=== PATIENT | male | born 1970 | race Caucasian/White ===

== ENCOUNTER 2017-09-30 06:42 | Day surgery (SDC) | payer MEDICAID ==
[~2017-09-30] VITALS: Ht 177.8 cm; Wt 72.6 kg
[~2017-09-30 06:42] MED LIST: CARV3.1246 PO; CLOP75TA2 PO; GLU500 PO; LIP40 PO; LISI-209 PO; RANO500T2 PO
[2017-09-30] MEDS ORDERED: CLINDAMYCIN PHOS 600 MG/ D5W 50 ML PREMIX IV ONE (07:15)
[2017-09-30] MEDS ORDERED: OXYMETAZOLINE HCL 0.05% NASAL SPRAY NS ONE (08:15)
[2017-09-30] MEDS ORDERED: LIDOCAINE/EPI 1% 1:100000 20 ML VIAL INJ ONE (08:15)
[2017-09-30] MEDS ORDERED: ONDANSETRON HCL 4 MG/2 ML VIAL IVP ONE (08:15)
[2017-09-30] MEDS ORDERED: MIDAZOLAM HCL 5 MG/5 ML VIAL IVP ONE (08:15)
[2017-09-30] MEDS ORDERED: NS IRRIG SOLN 1000 ML IR ONE (08:15)
[2017-09-30] MEDS ORDERED: SEVOFLURANE 15 MIN GAS INH ONE (08:15)
[2017-09-30] MEDS ORDERED: DEXAMETHASONE SOD PHOSPHATE 4 MG/ML VIAL IVP ONE (08:15)
[2017-09-30] MEDS ORDERED: PROPOFOL 200MG/ 20ML VIAL (DIPRIVAN) IV ONE (08:15)
[2017-09-30] MEDS ORDERED: fentaNYL CITRATE 250 MCG/5 ML AMP IV ONE (08:15)
[2017-09-30] MEDS ORDERED: ROCURONIUM BROMIDE 10 MG/ML (ZEMURON) IV ONE (08:15)
[2017-09-30] MEDS ORDERED: LR 1,000 ML IV SCH (09:48)
[2017-09-30] MEDS ORDERED: MORPHINE 4 MG/ML INJ. SYRINGE IVP PRN ×3 (10:00)
[2017-09-30] MEDS ORDERED: ACETAMINOPHEN 500 MG TABLET PO PRN (11:45)
[2017-09-30] MEDS ORDERED: ONDANSETRON 4 MG ODT TAB PO PRN (11:45)
[2017-09-30] MEDS ORDERED: ACETAMINOPHEN/CODEINE 300 MG-30 MG TABLET PO PRN (11:45)
[2017-09-30] MEDS ORDERED: ONDANSETRON HCL 4 MG/2 ML VIAL IVP PRN (11:45)
[2017-09-30 13:39] VITALS: BP_SYST 122
== END 2017-09-30 14:20 | disposition home or self-care (01) ==
LOC: SDS 06:42 → SMU 06:42 → SDS 14:20
PROVIDERS: ATTEND Otolaryngology
DX: J32.9 Chronic sinusitis, unspecified (principal); J33.9 Nasal polyp, unspecified; Z88.8 Allergy status to other drugs, medicaments and biological substances; Z95.1 Presence of aortocoronary bypass graft; Z86.73 Personal history of transient ischemic attack (TIA), and cerebral infarction without residual deficits; E11.9 Type 2 diabetes mellitus without complications; Z68.23 Body mass index [BMI] 23.0-23.9, adult; I11.0 Hypertensive heart disease with heart failure; I50.9 Heart failure, unspecified
CPT/HCPCS: 30140; 31253; 31259; 31267; 31296; 82962; 88305; 88311; 88312; A4649; C1726; J1100; J2250; J2405; J2704; J3010; J3490; J7120